=== PATIENT | male | born 1955 | race Caucasian/White ===

== ENCOUNTER → 2016-10-09 | Outpatient (CLI) | payer OTHER ==
[~2016-10-09] MED LIST: EPIPEN ADU0.3 MG/0.3 IM; LISINOPRIL40 MG PO; PRAVASTATIN SOD40 MG PO; PREDNISONE20 MG PO
== END | disposition home or self-care (01) ==
LOC: CDC 10:30
DX: G56.01 Carpal tunnel syndrome, right upper limb (principal); R94.31 Abnormal electrocardiogram [ECG] [EKG]
CPT/HCPCS: 93000